=== PATIENT | male | born 1945 | race African-American/Black ===

== ENCOUNTER 2017-04-08 21:39 | Inpatient (IN) | payer MEDICARE ==
[~2017-04-08] VITALS: Ht 177.8 cm; Wt 89.4 kg
[~2017-04-08 21:39] MED LIST: ALBU18HF2 IH; ALBU6.7H IH; AMLO10TA80 PO; ECON15CR11 TP; FLUT1DIS3 INH; LOSA100T14 PO; METF500T4 PO; ROSU40TA PO; TIOT18CA3 IH; TRIA1CAP35 PO
[2017-04-09] MEDS ORDERED: IPRATROPIUM/ALBUTEROL 0.5-3(2.5)MG/3ML NEB HHN ONE (01:45)
[2017-04-09] MEDS ORDERED: PREDNISONE 20MG TABLET PO ONE (01:45)
[2017-04-09 02:27] LABS: BASOPHILS % 0.6 % (0.0-2.0); EOSINOPHILS % 2.8 % (0.0-5.0); HEMATOCRIT. 33.9 % (42.0-52.0); HEMOGLOBIN. 11.6 g/dL (14.0-18.0); LYMPHOCYTES % 14.8 % (20.0-50.0); MEAN CORPUSCULAR HEMOGLOBIN 30.5 pg (28.0-32.0); MEAN CORPUSCULAR VOLUME 88.8 fL (80.0-94.0); MEAN PLATELET VOLUME 9.2 fl (7.4-10.4); MONOCYTES % 9.4 % (2.0-8.0); NEUTROPHILS % 72.4 % (40.0-76.0); PLATELET 154 x1000/uL (130-400); RED BLOOD CELL COUNT 3.82 mill/uL (4.7-6.1); RED CELL DISTRIBUTION WIDTH 14.8 % (11.6-14.6)
[2017-04-09 02:30] LABS: INR 1.1; PARTIAL THROMBOPLASTIN TIME 31.5 sec (23.4-31.0); PROTHROMBIN TIME 11.6 sec (9.4-11.6)
[2017-04-09 02:37] LABS: CARBON DIOXIDE 26 mEq/L (21-32); CHLORIDE 100 mEq/L (98-107); TROPONIN I 0.02 ng/mL (0.00-0.04)
[2017-04-09] MEDS: IPRATROPIUM/ALBUTEROL 0.5-3(2.5)MG/3ML NEB INH SCH ×3 (06:35→20:40)
[2017-04-09 08:33] VITALS: BP 101/55
[2017-04-09] MEDS ORDERED: CLONIDINE 0.1MG TABLET PO PRN (09:30)
[2017-04-09] MEDS ORDERED: ONDANSETRON HCL 4MG/2ML VIAL IV PRN (09:30)
[2017-04-09] MEDS ORDERED: ACETAMINOPHEN 325MG TABLET PO PRN (09:30)
[2017-04-09] MEDS ORDERED: HYDROCODONE/ACETAMINOPHEN 5/325MG TABLET PO PRN (09:30)
[2017-04-09] MEDS ORDERED: SODIUM CHLORIDE 0.45% 1,000 ML IV SCH (09:30)
[2017-04-09] MEDS ORDERED: DEXTROSE 50% WATER 50ML SYRINGE IV PRN (09:45)
[2017-04-09] MEDS: METHYLPREDNISOLONE SOD SUCC 40 MG/ML VIAL IV SCH ×3 (10:51→21:56)
[2017-04-09] MEDS: ENOXAPARIN 40MG/0.4ML SYR SUBCUT SCH (10:52)
[2017-04-09] MEDS: ASPIRIN 81MG EC TABLET PO SCH (10:52)
[2017-04-09] MEDS ORDERED: LEVOFLOXACIN 500MG PREMIX 100 ML IV SCH (11:00)
[2017-04-09] MEDS: BLOOD SUGAR DIAGNOSTIC STRIP TEST SCH ×3 (11:19→21:53)
[2017-04-09] MEDS: INSULIN LISPRO 100 UNITS/ML SUBCUT SCH ×3 (11:37→21:00)
[2017-04-09 12:00] VITALS: BP 99/35
[2017-04-09 16:00] VITALS: BP 102/51
[2017-04-09] MEDS ORDERED: FUROSEMIDE 40MG/4ML VIAL IVP SCH (17:30)
[2017-04-09 20:00] VITALS: BP 104/58
[2017-04-10] VITALS: BP 108/44
[2017-04-10 04:00] VITALS: BP 100/50
[2017-04-10 05:56] LABS: BASOPHILS % 0.2 % (0.0-2.0); EOSINOPHILS % 0.1 % (0.0-5.0); HEMATOCRIT. 37.2 % (42.0-52.0); HEMOGLOBIN. 12.6 g/dL (14.0-18.0); LYMPHOCYTES % 9.8 % (20.0-50.0); MEAN CORPUSCULAR HEMOGLOBIN 30.1 pg (28.0-32.0); MEAN CORPUSCULAR VOLUME 89.1 fL (80.0-94.0); MEAN PLATELET VOLUME 9.2 fl (7.4-10.4); NEUTROPHILS % 82.9 % (40.0-76.0); PLATELET 184 x1000/uL (130-400); RED BLOOD CELL COUNT 4.18 mill/uL (4.7-6.1); RED CELL DISTRIBUTION WIDTH 14.8 % (11.6-14.6)
[2017-04-10] MEDS: METHYLPREDNISOLONE SOD SUCC 40 MG/ML VIAL IV SCH ×2 (06:03→14:40)
[2017-04-10] MEDS: BLOOD SUGAR DIAGNOSTIC STRIP TEST SCH ×3 (06:04→17:14)
[2017-04-10] MEDS: INSULIN LISPRO 100 UNITS/ML SUBCUT SCH ×3 (06:17→17:14)
[2017-04-10 06:21] LABS: CHLORIDE 101 mEq/L (98-107)
[2017-04-10 06:33] LABS: CARBON DIOXIDE 27 mEq/L (21-32); HDL CHOLESTEROL 48 mg/dL (40-59); LDL CHOLESTEROL 29 mg/dL (5-100); T4 FREE 0.95 ng/dL (0.76-1.46)
[2017-04-10 08:00] VITALS: BP 103/47
[2017-04-10] MEDS: IPRATROPIUM/ALBUTEROL 0.5-3(2.5)MG/3ML NEB INH SCH ×4 (08:40→19:37)
[2017-04-10] MEDS: ASPIRIN 81MG EC TABLET PO SCH (08:56)
[2017-04-10] MEDS: ENOXAPARIN 40MG/0.4ML SYR SUBCUT SCH (08:56)
[2017-04-10] MEDS ORDERED: LEVOFLOXACIN 250MG PREMIX 50 ML IV SCH (11:00)
[2017-04-10] MEDS: GUAIFENESIN 200MG/10ML SUGAR FREE UDC PO PRN ×2 (11:14→17:22)
[2017-04-10 12:00] VITALS: BP 110/60
[2017-04-10 19:39] VITALS: BP 108/60
== END 2017-04-10 20:10 | disposition home or self-care (01) | DRG 191 ==
LOC: ER 21:55 → ENRESERV 04-09 07:11 → 5WST 04-09 07:56
PROVIDERS: ADMIT Internal Medicine; ATTEND Internal Medicine
DX: J44.1 Chronic obstructive pulmonary disease with (acute) exacerbation (principal); E44.0 Moderate protein-calorie malnutrition; E11.22 Type 2 diabetes mellitus with diabetic chronic kidney disease; E11.51 Type 2 diabetes mellitus with diabetic peripheral angiopathy without gangrene; M94.0 Chondrocostal junction syndrome [Tietze]; I12.9 Hypertensive chronic kidney disease with stage 1 through stage 4 chronic kidney disease, or unspecified chronic kidney disease; N18.9 Chronic kidney disease, unspecified; Z96.641 Presence of right artificial hip joint; Z96.653 Presence of artificial knee joint, bilateral; R07.89 Other chest pain; I25.10 Atherosclerotic heart disease of native coronary artery without angina pectoris; Z79.899 Other long term (current) drug therapy
CPT/HCPCS: 36415; 71010; 80053; 80061; 82962; 83690; 83880; 84439; 84443; 84484; 85025; 85610; 85730; 87070; 87804; 93005; 94640; 99285; J1650; J1815; J1940; J1956; J2920; J7512; J7620

== ENCOUNTER 2017-05-28 10:40 | Emergency (ER) | payer MEDICARE ==
[~2017-05-28] VITALS: Ht 172.7 cm; Wt 71.0 kg
[2017-05-28] MEDS ORDERED: IBUPROFEN 600MG TABLET PO ONE (14:30)
[2017-05-28] MEDS ORDERED: HYDROCODONE/ACETAMINOPHEN 5/325MG TABLET PO NR (15:45)
[2017-05-28 17:20] VITALS: BP 132/60
== END 2017-05-28 17:45 | disposition home or self-care (01) ==
LOC: ER 10:40
DX: S62.122A Displaced fracture of lunate [semilunar], left wrist, initial encounter for closed fracture (principal); S62.002A Unspecified fracture of navicular [scaphoid] bone of left wrist, initial encounter for closed fracture; S13.4XXA Sprain of ligaments of cervical spine, initial encounter; M43.12 Spondylolisthesis, cervical region; X58.XXXA Exposure to other specified factors, initial encounter; Y93.89 Activity, other specified; Y92.89 Other specified places as the place of occurrence of the external cause; Y99.8 Other external cause status; J44.9 Chronic obstructive pulmonary disease, unspecified; I10 Essential (primary) hypertension; E11.9 Type 2 diabetes mellitus without complications; Z87.891 Personal history of nicotine dependence
CPT/HCPCS: 72040; 73110; 99284

== ENCOUNTER 2018-07-12 10:09 | Emergency (ER) | payer MEDICARE ==
[~2018-07-12] VITALS: Ht 177.8 cm; Wt 80.0 kg
[~2018-07-12 10:09] MED LIST changes: +METF-414 PO; -METF500T4 PO
[2018-07-12 11:00] VITALS: BP 101/54
[2018-07-12 11:17] LABS: BASOPHILS % 0.8 % (0.0-2.0); EOSINOPHILS % 4.1 % (0.0-5.0); HEMATOCRIT. 37.2 % (42.0-52.0); HEMOGLOBIN. 12.1 g/dL (14.0-18.0); MEAN CORPUSCULAR HEMOGLOBIN 29.8 pg (28.0-32.0); MEAN CORPUSCULAR VOLUME 91.5 fL (80.0-94.0); MONOCYTES % 9.1 % (2.0-8.0); PLATELET 188 x1000/uL (130-400); RED BLOOD CELL COUNT 4.07 mill/uL (4.7-6.1); RED CELL DISTRIBUTION WIDTH 14.4 % (11.6-14.6)
[2018-07-12 11:24] LABS: CHLORIDE 110 mEq/L (98-107); PROTHROMBIN TIME 10.3 sec (9.1-11.1)
== END 2018-07-12 12:21 | disposition home or self-care (01) ==
LOC: ER 10:20
DX: K43.9 Ventral hernia without obstruction or gangrene (principal); J44.9 Chronic obstructive pulmonary disease, unspecified; F17.210 Nicotine dependence, cigarettes, uncomplicated; Z96.641 Presence of right artificial hip joint; Z96.659 Presence of unspecified artificial knee joint; Z98.890 Other specified postprocedural states
CPT/HCPCS: 36415; 74176; 99284

== ENCOUNTER 2020-12-19 18:22 | Emergency (ER) | payer MEDICARE ==
[~2020-12-19] VITALS: Ht 177.8 cm; Wt 80.0 kg
[~2020-12-19 18:22] MED LIST changes: -ALBU6.7H IH; +ALBU6.7H15 IH; -ECON15CR11 TP; +ECON15CR4 TP; -LOSA100T14 PO; +LOSA100T32 PO
[2020-12-19] MEDS ORDERED: AMOX-424 MT (19:06)
[2020-12-19] MEDS ORDERED: AMOXICILLIN/POTASSIUM CLAVULANATE 875/125MG TAB PO ONE (19:15)
[2020-12-19] MEDS ORDERED: KETOROLAC 60MG/2ML VIAL IM ONE (19:15)
[2020-12-19 19:22] VITALS: BP 120/78
== END 2020-12-19 19:23 | disposition home or self-care (01) ==
LOC: ER 18:22
DX: J02.9 Acute pharyngitis, unspecified (principal); J45.909 Unspecified asthma, uncomplicated; J44.1 Chronic obstructive pulmonary disease with (acute) exacerbation; I10 Essential (primary) hypertension; Z79.899 Other long term (current) drug therapy; Z98.890 Other specified postprocedural states
CPT/HCPCS: 96372; 99283; J1885

== ENCOUNTER 2022-06-17 17:05 | Inpatient (IN) | payer BC, MEDICAID ==
[~2022-06-17] VITALS: Ht 170.2 cm; Wt 81.2 kg
[~2022-06-17 17:05] MED LIST changes: +AMOX-424 MT
[2022-06-17 18:18] LABS: BASOPHILS % 0.3 % (0.0-2.0); EOSINOPHILS % 2.8 % (0.0-5.0); HEMATOCRIT. 36.1 % (42.0-52.0); HEMOGLOBIN. 11.5 g/dL (14.0-18.0); LYMPHOCYTES % 12.2 % (20.0-50.0); MEAN CORPUSCULAR HEMOGLOBIN 29.2 pg (28.0-32.0); MEAN CORPUSCULAR VOLUME 91.5 fL (80.0-94.0); MEAN PLATELET VOLUME 9.2 fl (7.4-10.4); MONOCYTES % 8.1 % (2.0-8.0); NEUTROPHILS % 76.6 % (40.0-76.0); PLATELET 225 x1000/uL (130-400); RED BLOOD CELL COUNT 3.95 mill/uL (4.7-6.1); RED CELL DISTRIBUTION WIDTH 17.7 % (11.6-14.6)
[2022-06-17 18:26] LABS: CHLORIDE 108 mEq/L (98-107)
[2022-06-17] MEDS ORDERED: ASPIRIN 325MG EC TABLET PO NR (22:30)
[2022-06-17] MEDS ORDERED: SODIUM CHLORIDE 0.9% 1,000 ML IV ONE (22:30)
[2022-06-18] MEDS ORDERED: METOPROLOL TARTRATE 5MG/5ML VIAL IV NR (01:15)
[2022-06-18] MEDS ORDERED: DOCUSATE SODIUM 100MG CAPSULE PO PRN (02:45)
[2022-06-18] MEDS ORDERED: CLONIDINE 0.1MG TABLET PO PRN (02:45)
[2022-06-18] MEDS ORDERED: ONDANSETRON HCL 4MG/2ML INJ IV PRN (02:45)
[2022-06-18] MEDS ORDERED: DILTIAZEM HCL 30MG TABLET PO NR (02:45)
[2022-06-18] MEDS ORDERED: GUAIFENESIN 200MG/10ML SUGAR FREE UDC PO PRN (02:45)
[2022-06-18] MEDS ORDERED: ACETAMINOPHEN 325MG TABLET PO PRN (02:45)
[2022-06-18] MEDS ORDERED: IPRATROPIUM/ALBUTEROL 0.5-3(2.5)MG/3ML NEB HHN PRN (02:45)
[2022-06-18 03:12] LABS: CLARITY URINE CLEAR (CLEAR); COLOR URINE YELLOW (YELLOW); KETONES URINE TRACE (NEGATIVE); LEUKOCYTE ESTERASE URINE 1+ (NEGATIVE); NITRITE URINE NEGATIVE (NEGATIVE); OCCULT BLOOD URINE 2+ (NEGATIVE); PH URINE 5.5 (4.5-8.0); PROTEIN URINE 1+ (NEGATIVE); SPECIFIC GRAVITY URINE 1.012 (1.005-1.030); UROBILINOGEN URINE 0.2 E.U./dL (0.2-1.0)
[2022-06-18 03:26] LABS: *AMPHETAMINES SCREEN URINE NEGATIVE (NEGATIVE); *BARBITURATES SCREEN URINE NEGATIVE (NEGATIVE); *BENZODIAZEPINES SCREEN URINE NEGATIVE (NEGATIVE); *COCAINE SCREEN URINE NEGATIVE (NEGATIVE); CANNABINOID URINE SCREEN NEGATIVE (NEGATIVE); METHADONE URINE SCREEN NEGATIVE (NEGATIVE); OPIATES URINE SCREEN PRESUMTIVE POSITIVE (NEGATIVE); PHENCYCLIDINE URINE SCREEN NEGATIVE (NEGATIVE)
[2022-06-18 06:17] LABS: CREATINE KINASE MB FRACTION 2.6 ng/mL (0.5-3.6)
[2022-06-18 06:20] LABS: FOLIC ACID (FOLATE) SERUM 6.4 ng/mL (>5.38)
[2022-06-18] MEDS ORDERED: PIPERACILLIN/TAZ 3.375G PREMIX 50 ML IV NR (07:15)
[2022-06-18] MEDS ORDERED: VANCOMYCIN 1,500 MG in DEXT 5% WATER 250 ML IV NR (08:00)
[2022-06-18] MEDS ORDERED: ENOXAPARIN 30MG/0.3ML SYR SUBCUT SCH (09:00)
[2022-06-18 09:54] LABS: INR 1.2
[2022-06-18] MEDS ORDERED: PIPERACILLIN/TAZOBACTAM 3.375G in DEXT 5% WATER 50ML IV NR (10:00)
[2022-06-18] MEDS: DEXAMETHASONE 4MG/ML 1ML VIAL IV SCH ×2 (12:25→19:42)
[2022-06-18 15:22] LABS: CREATINE KINASE MB FRACTION 1.8 ng/mL (0.5-3.6)
[2022-06-18] MEDS ORDERED: IPRATROPIUM BROMIDE (0.02%) 0.5MG/2.5ML NEB HHN PRN (16:45)
[2022-06-18 17:00] VITALS: BP 121/57
[2022-06-18 17:36] VITALS: BP 121/57
[2022-06-18] MEDS ORDERED: INFLUENZA VACCINE IM ONE (18:15)
[2022-06-18] MEDS ORDERED: PNEUMOCOCCAL VACCINE IM ONE (18:15)
[2022-06-18 20:00] VITALS: BP 107/52
[2022-06-18] MEDS: FAMOTIDINE 20MG TABLET PO SCH (21:29)
[2022-06-19] VITALS: BP 116/53
[2022-06-19] MEDS: DEXAMETHASONE 4MG/ML 1ML VIAL IV SCH ×4 (01:02→18:57)
[2022-06-19 04:00] VITALS: BP 149/53
[2022-06-19] MEDS ORDERED: LIDOCAINE HCL 1%/EPI 1:200,000 30 ML VIAL ONE (06:44)
[2022-06-19] MEDS ORDERED: GENTAMICIN SULF 40MG/ML 2ML VIAL ONE (06:45)
[2022-06-19] MEDS ORDERED: THROMBIN (BOVINE) 5000 UNITS/VIAL TOP ONE (06:45)
[2022-06-19 08:00] VITALS: BP 125/55
[2022-06-19 10:51] LABS: BASOPHILS % 0.2 % (0.0-2.0); HEMATOCRIT. 37.6 % (42.0-52.0); HEMOGLOBIN. 12.4 g/dL (14.0-18.0); LYMPHOCYTES % 14.7 % (20.0-50.0); MEAN CORPUSCULAR HEMOGLOBIN 29.5 pg (28.0-32.0); MEAN CORPUSCULAR VOLUME 89.5 fL (80.0-94.0); MEAN PLATELET VOLUME 10.1 fl (7.4-10.4); MONOCYTES % 2.5 % (2.0-8.0); NEUTROPHILS % 82.6 % (40.0-76.0); PLATELET 197 x1000/uL (130-400); RED CELL DISTRIBUTION WIDTH 17.2 % (11.6-14.6)
[2022-06-19 11:07] LABS: CHLORIDE 111 mEq/L (98-107)
[2022-06-19 11:19] LABS: PHOSPHORUS 3.7 mg/dL (2.5-4.9)
[2022-06-19 12:00] VITALS: BP 114/70
[2022-06-19 16:00] VITALS: BP 119/60
[2022-06-19] MEDS ORDERED: VANCOMYCIN 500MG PREMIX 100 ML IV SCH (16:00)
[2022-06-19] MEDS ORDERED: IPRATROPIUM BROMIDE (0.02%) 0.5MG/2.5ML NEB HHN SCH (18:15)
[2022-06-19 20:00] VITALS: BP 115/52
[2022-06-19] MEDS: FAMOTIDINE 20MG TABLET PO SCH (21:35)
[2022-06-20] VITALS: BP 125/69
[2022-06-20] MEDS ORDERED: ALBUTEROL (0.083%) 2.5MG/3ML NEB HHN SCH
[2022-06-20] MEDS: DEXAMETHASONE 4MG/ML 1ML VIAL IV SCH ×3 (00:43→11:26)
[2022-06-20] MEDS: ZOLPIDEM TARTRATE 5MG TABLET PO PRN (00:43)
[2022-06-20 04:00] VITALS: BP 122/88
[2022-06-20 08:00] VITALS: BP 134/58
[2022-06-20] MEDS ORDERED: REGADENOSON 0.4 MG/5 ML IV SCH (08:45)
[2022-06-20] MEDS: BUDESONIDE 0.5MG/2ML NEB HHN SCH ×2 (09:19→20:52)
[2022-06-20 12:00] VITALS: BP 152/43
[2022-06-20] MEDS ORDERED: VANCOMYCIN 500MG PREMIX 100 ML IV SCH (15:00)
[2022-06-20 16:00] VITALS: BP 154/61
[2022-06-20 20:00] VITALS: BP 105/49
[2022-06-20] MEDS: FAMOTIDINE 20MG TABLET PO SCH (20:46)
[2022-06-21] VITALS: BP 131/51
[2022-06-21 04:00] VITALS: BP 96/48
[2022-06-21 08:00] VITALS: BP 119/54
[2022-06-21] MEDS ORDERED: REGADENOSON 0.4 MG/5 ML IV ONE (11:04)
[2022-06-21 11:56] VITALS: BP 123/62
[2022-06-21] MEDS: BUDESONIDE 0.5MG/2ML NEB HHN SCH ×2 (12:06→20:14)
[2022-06-21] MEDS: ALBUTEROL (0.083%) 2.5MG/3ML NEB HHN PRN ×2 (12:07→20:16)
[2022-06-21] MEDS: VANCOMYCIN 750MG PREMIX 150 ML IV SCH (13:39)
[2022-06-21 16:00] VITALS: BP 136/52
[2022-06-21 20:00] VITALS: BP 115/40
[2022-06-21] MEDS: FAMOTIDINE 20MG TABLET PO SCH (21:19)
[2022-06-21] MEDS: ZOLPIDEM TARTRATE 5MG TABLET PO PRN (23:11)
[2022-06-22] VITALS: BP 106/51
[2022-06-22 04:00] VITALS: BP 119/42
[2022-06-22 08:00] VITALS: BP 114/54
[2022-06-22] MEDS ORDERED: IODIXANOL 320MG/ML 100 ML BOTTLE IV ONE (08:31)
[2022-06-22] MEDS ORDERED: HEPARIN 1000 UNITS/ML 10ML ONE (08:31)
[2022-06-22] MEDS ORDERED: LIDOCAINE HCL/PF 2% 20MG/ML 5 ML/VIAL ONE (08:31)
[2022-06-22] MEDS ORDERED: FENTANYL CITRATE/PF 50MCG/ML 2ML VIAL ONE (09:02)
[2022-06-22] MEDS ORDERED: MIDAZOLAM HCL 2 MG/2 ML VIAL ONE (09:02)
[2022-06-22] MEDS ORDERED: ATROPINE SULFATE 1MG/10ML SYR ONE (09:24)
[2022-06-22] MEDS: BUDESONIDE 0.5MG/2ML NEB HHN SCH (09:24)
[2022-06-22] MEDS ORDERED: ACETAMINOPHEN 325MG TABLET PO PRN (10:00)
[2022-06-22] MEDS ORDERED: ATROPINE SULFATE 1MG/10ML SYR IV PRN (10:00)
[2022-06-22] MEDS ORDERED: SODIUM CHLORIDE 0.45% 1,000 ML IV ONE (10:45)
[2022-06-22] MEDS ORDERED: NITROGLYCERIN 50MCG/ML 10ML VIAL (CATH LAB) IV ONE (11:08)
[2022-06-22] MEDS ORDERED: NICARDIPINE 100MCG/ML 10ML VIAL (CATH LAB) IV ONE (11:08)
[2022-06-22 13:50] VITALS: BP 103/56
[2022-06-22 16:00] VITALS: BP 118/90
[2022-06-22] MEDS: VANCOMYCIN 750MG PREMIX 150 ML IV SCH (16:05)
[2022-06-22 20:00] VITALS: BP 96/46
[2022-06-22] MEDS: ZOLPIDEM TARTRATE 5MG TABLET PO PRN (20:47)
[2022-06-22] MEDS: FAMOTIDINE 20MG TABLET PO SCH (20:47)
[2022-06-23] VITALS (50 sets, daily range): BP systolic 71–194; BP diastolic 28–171
[2022-06-23] MEDS: DEXAMETHASONE 4MG/ML 1ML VIAL IV SCH ×5 (01:01→23:19)
[2022-06-23 07:07] LABS: BASOPHILS % 0.2 % (0.0-2.0); EOSINOPHILS % 2.4 % (0.0-5.0); HEMATOCRIT. 37.8 % (42.0-52.0); HEMOGLOBIN. 12.1 g/dL (14.0-18.0); LYMPHOCYTES % 19.9 % (20.0-50.0); MEAN CORPUSCULAR HEMOGLOBIN 28.8 pg (28.0-32.0); MEAN CORPUSCULAR VOLUME 89.9 fL (80.0-94.0); MEAN PLATELET VOLUME 10.1 fl (7.4-10.4); MONOCYTES % 3.4 % (2.0-8.0); NEUTROPHILS % 74.1 % (40.0-76.0); PLATELET 222 x1000/uL (130-400); RED BLOOD CELL COUNT 4.21 mill/uL (4.7-6.1); RED CELL DISTRIBUTION WIDTH 16.2 % (11.6-14.6)
[2022-06-23] MEDS ORDERED: ETOMIDATE 2MG/ML 10ML VIAL IV ONE (09:26)
[2022-06-23] MEDS ORDERED: DEXAMETHASONE 4MG/ML 1ML VIAL ONE (09:26)
[2022-06-23] MEDS ORDERED: ONDANSETRON HCL 4MG/2ML INJ ONE (09:26)
[2022-06-23] MEDS ORDERED: GLYCOPYRROLATE 0.2 MG/ML 2ML VIAL ONE ×3 (09:27→11:47)
[2022-06-23] MEDS ORDERED: FENTANYL CITRATE/PF 50MCG/ML 2ML VIAL ONE ×2 (09:27→10:40)
[2022-06-23] MEDS ORDERED: ROCURONIUM BROMIDE 10MG/ML VIAL 5ML IV ONE ×2 (09:27→10:54)
[2022-06-23] MEDS ORDERED: NEOSTIGMINE METHYLSULFATE 1MG/ML 10 ML VIAL ONE (09:27)
[2022-06-23] MEDS ORDERED: PROPOFOL 200MG/20ML VIAL IV ONE (09:27)
[2022-06-23] MEDS ORDERED: MIDAZOLAM HCL 2 MG/2 ML VIAL ONE (09:28)
[2022-06-23] MEDS ORDERED: GENTAMICIN SULF 40MG/ML 2ML VIAL ONE (09:45)
[2022-06-23] MEDS ORDERED: LIDOCAINE HCL/EPINEPHRINE 1%-EPI 1:100,000 20 ML VIAL ONE (09:45)
[2022-06-23] MEDS ORDERED: THROMBIN (BOVINE) 5000 UNITS/VIAL TOP ONE (09:45)
[2022-06-23] MEDS ORDERED: NICARDIPINE 100 MG in SODIUM CHLORIDE 0.9% 60 ML IV PRN (10:00)
[2022-06-23] MEDS ORDERED: NALOXONE HCL 0.4MG/ML VIAL IV PRN (11:00)
[2022-06-23] MEDS ORDERED: LABETALOL HCL 5MG/ML VIAL 20ML IV ONE (11:59)
[2022-06-23] MEDS ORDERED: HYDRALAZINE 20MG/ML VIAL ONE ×2 (11:59→12:06)
[2022-06-23] MEDS: MORPHINE SULFATE 4 MG/ML CPJ (NOT FOR IM USE) IV PRN ×2 (12:43→17:51)
[2022-06-23] MEDS: DEXT 5%/LACTATED RINGERS 1,000 ML IV SCH ×2 (12:45→20:00)
[2022-06-23 13:13] LABS: BG CARBOXYHEMOGLOBIN 0.2 % (0.5-1.5); BG DEOXYHEMOGLOBIN 0.2 % (0.0-5.0); BG FRACTION INSPIRED OXYGEN 100; BG HCO3 ACT 20.4 mmol/L (22.0-26.0); BG METHEMOGLOBIN 0.1 % (0.0-1.5); BG OXYGEN SATURATION 99.8 % (92.0-98.5); BG OXYHEMOGLOBIN 99.5 % (94.0-97.0); BG PCO2 39.4 mmHg (35.0-45.0); BG PH 7.333 (7.350-7.450); BG PO2 526.2 mmHg (75.0-100.0); BG SAMPLE SITE ALINE; BG TOTAL HEMOGLOBIN 14.5 g/dL (12.0-18.0); BG VENT MODE VENT - AC
[2022-06-23] MEDS ORDERED: PROPOFOL 10MG/ML 100ML 100 ML IV PRN (13:15)
[2022-06-23] MEDS ORDERED: MORPHINE SULFATE 4 MG/ML CPJ (NOT FOR IM USE) IV NR (13:30)
[2022-06-23] MEDS ORDERED: CEFAZOLIN SODIUM 1000MG/VIAL IV SCH (14:00)
[2022-06-23] MEDS: VANCOMYCIN 750MG PREMIX 150 ML IV SCH (14:09)
[2022-06-23] MEDS: CEFAZOLIN 1000MG PREMIX 50 ML IV SCH ×2 (14:09→23:19)
[2022-06-23 15:12] LABS: BG BASE EXCESS -3.7 mmol/L (-2.0-2.0); BG CARBOXYHEMOGLOBIN 0.2 % (0.5-1.5); BG DEOXYHEMOGLOBIN 2.4 % (0.0-5.0); BG FRACTION INSPIRED OXYGEN 40; BG HCO3 ACT 21.7 mmol/L (22.0-26.0); BG METHEMOGLOBIN 0.7 % (0.0-1.5); BG OXYGEN SATURATION 97.6 % (92.0-98.5); BG OXYHEMOGLOBIN 96.7 % (94.0-97.0); BG PCO2 40.8 mmHg (35.0-45.0); BG PH 7.344 (7.350-7.450); BG PO2 109.5 mmHg (75.0-100.0); BG SAMPLE SITE ALINE; BG TOTAL HEMOGLOBIN 13.7 g/dL (12.0-18.0); BG VENT MODE VENT - CPAP
[2022-06-23] MEDS: FAMOTIDINE 20MG TABLET PO SCH (21:00)
[2022-06-24] VITALS (42 sets, daily range): BP systolic 99–147; BP diastolic 44–80
[2022-06-24] MEDS: CEFAZOLIN 1000MG PREMIX 50 ML IV SCH ×3 (05:21→23:44)
[2022-06-24] MEDS: DEXAMETHASONE 4MG/ML 1ML VIAL IV SCH ×4 (05:21→23:44)
[2022-06-24] MEDS: DEXT 5%/LACTATED RINGERS 1,000 ML IV SCH ×2 (05:21→17:26)
[2022-06-24] MEDS ORDERED: LIDOCAINE HCL 1% 30ML VIAL (10MG/ML) ONE (07:52)
[2022-06-24] MEDS: MORPHINE SULFATE 4 MG/ML CPJ (NOT FOR IM USE) IV PRN (14:41)
[2022-06-24] MEDS: FAMOTIDINE 20MG TABLET PO SCH (21:48)
[2022-06-25] VITALS: BP 138/57
[2022-06-25] MEDS: DEXT 5%/LACTATED RINGERS 1,000 ML IV SCH ×3 (00:43→22:32)
[2022-06-25] MEDS: MORPHINE SULFATE 4 MG/ML CPJ (NOT FOR IM USE) IV PRN (00:43)
[2022-06-25 01:00] VITALS: BP 138/57
[2022-06-25 02:00] VITALS: BP 117/71
[2022-06-25 04:00] VITALS: BP 148/61
[2022-06-25] MEDS: DEXAMETHASONE 4MG/ML 1ML VIAL IV SCH ×2 (05:53→12:59)
[2022-06-25] MEDS: CEFAZOLIN 1000MG PREMIX 50 ML IV SCH ×2 (05:53→13:39)
[2022-06-25 06:00] VITALS: BP 151/59
[2022-06-25 18:17] LABS: CHLORIDE 106 mEq/L (98-107)
[2022-06-25 20:00] VITALS: BP 139/68
[2022-06-25] MEDS: FAMOTIDINE 20MG TABLET PO SCH (22:40)
[2022-06-26] VITALS (10 sets, daily range): BP systolic 110–152; BP diastolic 60–98
[2022-06-26] MEDS ORDERED: LORAZEPAM 2MG/ML CPJ IV NR (19:15)
[2022-06-26] MEDS: DEXT 5%/LACTATED RINGERS 1,000 ML IV SCH (20:59)
[2022-06-26] MEDS: FAMOTIDINE 20MG TABLET PO SCH (21:00)
[2022-06-26] MEDS ORDERED: LEVETIRACETAM 3,000 MG in SODIUM CHLORIDE 0.9% 100 ML IV NR (21:00)
[2022-06-27] VITALS (13 sets, daily range): BP systolic 120–179; BP diastolic 55–107
[2022-06-27] MEDS: DEXT 5%/LACTATED RINGERS 1,000 ML IV SCH ×2 (04:00→17:15)
[2022-06-27] MEDS: LEVETIRACETAM 1000MG PREMIX 100 ML IV SCH ×2 (08:36→20:24)
[2022-06-27] MEDS: AMLODIPINE 5MG TABLET PO SCH (09:15)
[2022-06-27] MEDS: FAMOTIDINE 20MG TABLET PO SCH ×3 (20:24→20:45)
[2022-06-28] VITALS (7 sets, daily range): BP systolic 127–159; BP diastolic 53–98
[2022-06-28] MEDS: DEXT 5%/LACTATED RINGERS 1,000 ML IV SCH ×2 (04:00→10:00)
[2022-06-28] MEDS: LEVETIRACETAM 1000MG PREMIX 100 ML IV SCH ×2 (08:26→22:01)
[2022-06-28] MEDS: AMLODIPINE 5MG TABLET PO SCH (09:00)
[2022-06-28] MEDS: ACETAMINOPHEN 325MG TABLET PO PRN (18:42)
[2022-06-28] MEDS: FAMOTIDINE 20MG TABLET PO SCH (22:01)
[2022-06-29] MEDS: DEXT 5%/LACTATED RINGERS 1,000 ML IV SCH ×2 (03:23→16:00)
[2022-06-29 04:00] VITALS: BP 148/87
[2022-06-29 08:00] VITALS: BP 145/74
[2022-06-29] MEDS: LEVETIRACETAM 1000MG PREMIX 100 ML IV SCH (10:16)
[2022-06-29] MEDS: AMLODIPINE 5MG TABLET PO SCH (10:20)
[2022-06-29 12:00] VITALS: BP 140/70
[2022-06-29 16:00] VITALS: BP 142/72
[2022-06-29 20:00] VITALS: BP 144/76
[2022-06-29] MEDS: FAMOTIDINE 20MG TABLET PO SCH (21:40)
[2022-06-29] MEDS: LEVETIRACETAM 1,500 MG in SODIUM CHLORIDE 0.9% 100 ML IV SCH (21:40)
[2022-06-29] MEDS: ACETAMINOPHEN 325MG TABLET PO PRN (21:49)
[2022-06-29 22:34] VITALS: BP 159/88
[2022-06-30] VITALS (8 sets, daily range): BP systolic 115–149; BP diastolic 63–78
[2022-06-30] MEDS: DEXT 5%/LACTATED RINGERS 1,000 ML IV SCH ×2 (06:58→12:00)
[2022-06-30] MEDS ORDERED: LORAZEPAM 2MG/ML CPJ IV NR (10:00)
[2022-06-30] MEDS: AMLODIPINE 5MG TABLET PO SCH (10:09)
[2022-06-30] MEDS: LEVETIRACETAM 1,500 MG in SODIUM CHLORIDE 0.9% 100 ML IV SCH ×2 (10:09→21:53)
[2022-06-30] MEDS ORDERED: VALPROATE SODIUM 1,000 MG in SODIUM CHLORIDE 0.9% 100 ML IV SCH (11:00)
[2022-06-30 13:00] LABS: HEMATOCRIT 32.7 % (42.0-52.0); HEMOGLOBIN 10.4 g/dL (14.0-18.0); MEAN CORPUSCULAR HEMOGLOBIN 28.9 pg (28.0-32.0); MEAN CORPUSCULAR VOLUME 91.1 fL (80.0-94.0); PLATELET 92 x1000/uL (130-400); RED BLOOD CELL COUNT 3.59 mill/uL (4.7-6.1); RED CELL DISTRIBUTION WIDTH 15.9 % (11.6-14.6)
[2022-06-30 14:27] LABS: CHLORIDE 103 mEq/L (98-107)
[2022-06-30] MEDS ORDERED: IOHEXOL-350 100 ML BOTTLE ONE (15:46)
[2022-06-30] MEDS: FAMOTIDINE 20MG TABLET PO SCH (21:53)
[2022-06-30] MEDS: VALPROATE SODIUM 500 MG in SODIUM CHLORIDE 0.9% 100 ML IV SCH (23:16)
[2022-07-01] VITALS (7 sets, daily range): BP systolic 130–148; BP diastolic 47–82
[2022-07-01] MEDS: DEXT 5%/LACTATED RINGERS 1,000 ML IV SCH ×3 (06:30→17:13)
[2022-07-01] MEDS: AMLODIPINE 5MG TABLET PO SCH (07:57)
[2022-07-01] MEDS: VALPROATE SODIUM 500 MG in SODIUM CHLORIDE 0.9% 100 ML IV SCH ×2 (09:40→22:44)
[2022-07-01] MEDS: LEVETIRACETAM 1,500 MG in SODIUM CHLORIDE 0.9% 100 ML IV SCH ×2 (09:40→21:04)
[2022-07-01] MEDS ORDERED: ENOXAPARIN 80MG/0.8ML SYR SUBCUT SCH (10:00)
[2022-07-01] MEDS: IPRATROPIUM/ALBUTEROL 0.5-3(2.5)MG/3ML NEB HHN SCH ×2 (14:07→20:55)
[2022-07-01] MEDS ORDERED: GUAIFENESIN 600MG ER TABLET PO SCH (21:00)
[2022-07-01] MEDS: BLOOD SUGAR DIAGNOSTIC STRIP TEST SCH (22:00)
[2022-07-01] MEDS: INSULIN LISPRO 100 UNITS/ML SUBCUT SCH (22:13)
[2022-07-01] MEDS: GUAIFENESIN 200MG/10ML SUGAR FREE UDC PO SCH (22:13)
[2022-07-01] MEDS: FAMOTIDINE 20MG TABLET PO SCH (22:14)
[2022-07-02] VITALS (7 sets, daily range): BP systolic 130–145; BP diastolic 67–76
[2022-07-02] MEDS: IPRATROPIUM/ALBUTEROL 0.5-3(2.5)MG/3ML NEB HHN SCH ×4 (01:18→20:48)
[2022-07-02] MEDS: GUAIFENESIN 200MG/10ML SUGAR FREE UDC PO SCH ×3 (06:23→21:54)
[2022-07-02] MEDS: BLOOD SUGAR DIAGNOSTIC STRIP TEST SCH ×4 (06:31→21:55)
[2022-07-02] MEDS: DEXT 5%/LACTATED RINGERS 1,000 ML IV SCH ×2 (06:31→14:00)
[2022-07-02] MEDS: INSULIN LISPRO 100 UNITS/ML SUBCUT SCH ×4 (07:20→21:00)
[2022-07-02] MEDS: LEVETIRACETAM 1,500 MG in SODIUM CHLORIDE 0.9% 100 ML IV SCH ×2 (10:04→21:55)
[2022-07-02] MEDS: AMLODIPINE 5MG TABLET PO SCH (10:04)
[2022-07-02] MEDS: VALPROATE SODIUM 500 MG in SODIUM CHLORIDE 0.9% 100 ML IV SCH ×2 (10:06→21:55)
[2022-07-02] MEDS: THIAMINE HCL 500 MG in SODIUM CHLORIDE 0.9% 95 ML IV SCH (15:43)
[2022-07-02] MEDS: FAMOTIDINE 20MG TABLET PO SCH (21:54)
[2022-07-03] VITALS (7 sets, daily range): BP systolic 108–152; BP diastolic 53–90
[2022-07-03] MEDS: IPRATROPIUM/ALBUTEROL 0.5-3(2.5)MG/3ML NEB HHN SCH ×4 (01:05→21:06)
[2022-07-03] MEDS: DEXT 5%/LACTATED RINGERS 1,000 ML IV SCH (01:38)
[2022-07-03] MEDS: MENTHOL/LANOLIN/CALAMINE/ZN OX OINT 71GM TOP SCH ×5 (01:40→23:54)
[2022-07-03] MEDS: GUAIFENESIN 200MG/10ML SUGAR FREE UDC PO SCH ×3 (06:36→21:49)
[2022-07-03] MEDS: BLOOD SUGAR DIAGNOSTIC STRIP TEST SCH ×4 (06:50→21:49)
[2022-07-03 06:58] LABS: CHLORIDE 102 mEq/L (98-107)
[2022-07-03 06:59] LABS: BASOPHILS % 0.5 % (0.0-2.0); EOSINOPHILS % 2.2 % (0.0-5.0); HEMATOCRIT. 29.6 % (42.0-52.0); HEMOGLOBIN. 9.8 g/dL (14.0-18.0); LYMPHOCYTES % 18.8 % (20.0-50.0); MEAN CORPUSCULAR HEMOGLOBIN 29.7 pg (28.0-32.0); MEAN CORPUSCULAR VOLUME 89.4 fL (80.0-94.0); MEAN PLATELET VOLUME 8.4 fl (7.4-10.4); MONOCYTES % 7.5 % (2.0-8.0); PLATELET 201 x1000/uL (130-400); RED BLOOD CELL COUNT 3.31 mill/uL (4.7-6.1); RED CELL DISTRIBUTION WIDTH 15.9 % (11.6-14.6)
[2022-07-03] MEDS: INSULIN LISPRO 100 UNITS/ML SUBCUT SCH ×4 (07:20→21:00)
[2022-07-03] MEDS ORDERED: POTASSIUM CHLORIDE 20MEQ TABLET SR PO NR (07:45)
[2022-07-03] MEDS ORDERED: KCL 20MEQ/100ML PREMIX 100 ML IV ONE (07:45)
[2022-07-03] MEDS: KCL 20MEQ/100ML PREMIX 100 ML IV SCH ×2 (08:13→11:33)
[2022-07-03] MEDS: AMLODIPINE 5MG TABLET PO SCH (09:27)
[2022-07-03] MEDS: LEVETIRACETAM 1,500 MG in SODIUM CHLORIDE 0.9% 100 ML IV SCH ×2 (09:41→21:49)
[2022-07-03] MEDS: DOCUSATE SODIUM SUGAR FREE 100MG/10ML UDC NG SCH (09:41)
[2022-07-03] MEDS: VALPROATE SODIUM 500 MG in SODIUM CHLORIDE 0.9% 100 ML IV SCH (10:19)
[2022-07-03] MEDS: METOCLOPRAMIDE HCL 10MG/2ML VIAL IV SCH ×3 (12:33→23:54)
[2022-07-03] MEDS: THIAMINE HCL 500 MG in SODIUM CHLORIDE 0.9% 95 ML IV SCH (12:34)
[2022-07-03] MEDS ORDERED: LORAZEPAM 2MG/ML CPJ IM PRN (14:15)
[2022-07-03] MEDS ORDERED: BISACODYL 10MG SUPP PR NR (15:00)
[2022-07-03] MEDS: LORAZEPAM 2MG/ML CPJ IV PRN (15:16)
[2022-07-03] MEDS: FAMOTIDINE 20MG TABLET PO SCH (21:49)
[2022-07-03] MEDS: VALPROATE SODIUM 750 MG in SODIUM CHLORIDE 0.9% 100 ML IV SCH (21:49)
[2022-07-03] MEDS: SENNOSIDES 8.6MG TABLET PO SCH (21:49)
[2022-07-04] VITALS: BP 119/68
[2022-07-04] MEDS: IPRATROPIUM/ALBUTEROL 0.5-3(2.5)MG/3ML NEB HHN SCH ×4 (01:07→21:47)
[2022-07-04 04:00] VITALS: BP 139/70
[2022-07-04] MEDS: METOCLOPRAMIDE HCL 10MG/2ML VIAL IV SCH ×4 (06:38→23:42)
[2022-07-04 06:39] LABS: BASOPHILS % 0.5 % (0.0-2.0); EOSINOPHILS % 2.2 % (0.0-5.0); HEMATOCRIT. 29.2 % (42.0-52.0); HEMOGLOBIN. 9.9 g/dL (14.0-18.0); LYMPHOCYTES % 14.8 % (20.0-50.0); MEAN CORPUSCULAR HEMOGLOBIN 30.2 pg (28.0-32.0); MEAN CORPUSCULAR VOLUME 89.1 fL (80.0-94.0); MEAN PLATELET VOLUME 8.6 fl (7.4-10.4); MONOCYTES % 7.3 % (2.0-8.0); NEUTROPHILS % 75.2 % (40.0-76.0); PLATELET 200 x1000/uL (130-400); RED BLOOD CELL COUNT 3.28 mill/uL (4.7-6.1); RED CELL DISTRIBUTION WIDTH 15.9 % (11.6-14.6)
[2022-07-04] MEDS: GUAIFENESIN 200MG/10ML SUGAR FREE UDC PO SCH ×3 (06:39→21:08)
[2022-07-04] MEDS: INSULIN LISPRO 100 UNITS/ML SUBCUT SCH ×4 (06:39→21:00)
[2022-07-04] MEDS: MENTHOL/LANOLIN/CALAMINE/ZN OX OINT 71GM TOP SCH ×4 (06:39→23:42)
[2022-07-04] MEDS: BLOOD SUGAR DIAGNOSTIC STRIP TEST SCH ×4 (06:39→21:00)
[2022-07-04 07:03] LABS: CHLORIDE 105 mEq/L (98-107)
[2022-07-04 08:00] VITALS: BP 145/83
[2022-07-04] MEDS: LEVETIRACETAM 1,500 MG in SODIUM CHLORIDE 0.9% 100 ML IV SCH ×2 (08:16→21:09)
[2022-07-04] MEDS: DOCUSATE SODIUM SUGAR FREE 100MG/10ML UDC NG SCH (08:16)
[2022-07-04] MEDS: VALPROATE SODIUM 750 MG in SODIUM CHLORIDE 0.9% 100 ML IV SCH (08:17)
[2022-07-04] MEDS: AMLODIPINE 5MG TABLET PO SCH (08:24)
[2022-07-04 12:00] VITALS: BP 116/102
[2022-07-04] MEDS ORDERED: SORBITOL 70% SOLN 30ML PO SCH (12:00)
[2022-07-04] MEDS: THIAMINE HCL 500 MG in SODIUM CHLORIDE 0.9% 95 ML IV SCH (12:29)
[2022-07-04 16:00] VITALS: BP 132/70
[2022-07-04 20:20] VITALS: BP 154/79
[2022-07-04] MEDS: SENNOSIDES 8.6MG TABLET PO SCH (21:00)
[2022-07-04] MEDS: FAMOTIDINE 20MG TABLET PO SCH (21:08)
[2022-07-04] MEDS: VALPROATE SODIUM 1,000 MG in SODIUM CHLORIDE 0.9% 100 ML IV SCH (21:08)
[2022-07-04 22:08] LABS: BG BASE EXCESS 5.6 mmol/L (-2.0-2.0); BG CARBOXYHEMOGLOBIN 0.3 % (0.5-1.5); BG DEOXYHEMOGLOBIN 1.1 % (0.0-5.0); BG FRACTION INSPIRED OXYGEN 32; BG METHEMOGLOBIN 0.4 % (0.0-1.5); BG OXYGEN SATURATION 98.9 % (92.0-98.5); BG OXYHEMOGLOBIN 98.2 % (94.0-97.0); BG PCO2 37.6 mmHg (35.0-45.0); BG PH 7.505 (7.350-7.450); BG PO2 193.6 mmHg (75.0-100.0); BG SAMPLE SITE RIGHT RADIAL; BG TOTAL HEMOGLOBIN 10.6 g/dL (12.0-18.0); BG VENT MODE NASAL CANNULA
[2022-07-04] MEDS: ZONISAMIDE 100MG/10ML ORAL SYR NG SCH (22:19)
[2022-07-04] MEDS: DEXT 5%/0.9% NACL 1,000 ML IV SCH (23:33)
[2022-07-05] VITALS (7 sets, daily range): BP systolic 117–159; BP diastolic 65–92
[2022-07-05 00:17] LABS: CREATINE KINASE 50 IU/L (39-308)
[2022-07-05] MEDS: IPRATROPIUM/ALBUTEROL 0.5-3(2.5)MG/3ML NEB HHN SCH ×4 (02:16→21:12)
[2022-07-05 05:55] LABS: CHLORIDE 105 mEq/L (98-107); INR 1.1; PROTHROMBIN TIME 11.5 sec (9.6-11.0)
[2022-07-05] MEDS: GUAIFENESIN 200MG/10ML SUGAR FREE UDC PO SCH ×3 (06:26→21:17)
[2022-07-05] MEDS: METOCLOPRAMIDE HCL 10MG/2ML VIAL IV SCH ×4 (06:27→23:32)
[2022-07-05] MEDS: BLOOD SUGAR DIAGNOSTIC STRIP TEST SCH ×4 (06:27→20:54)
[2022-07-05] MEDS: MENTHOL/LANOLIN/CALAMINE/ZN OX OINT 71GM TOP SCH ×4 (06:27→23:33)
[2022-07-05 06:46] LABS: BASOPHILS % 0.6 % (0.0-2.0); EOSINOPHILS % 2.2 % (0.0-5.0); HEMATOCRIT. 30.3 % (42.0-52.0); HEMOGLOBIN. 10.1 g/dL (14.0-18.0); LYMPHOCYTES % 17.3 % (20.0-50.0); MEAN CORPUSCULAR HEMOGLOBIN 30.4 pg (28.0-32.0); MEAN CORPUSCULAR VOLUME 91.2 fL (80.0-94.0); MEAN PLATELET VOLUME 8.7 fl (7.4-10.4); MONOCYTES % 6.7 % (2.0-8.0); NEUTROPHILS % 73.2 % (40.0-76.0); PLATELET 183 x1000/uL (130-400); RED BLOOD CELL COUNT 3.33 mill/uL (4.7-6.1); RED CELL DISTRIBUTION WIDTH 16.2 % (11.6-14.6)
[2022-07-05] MEDS: INSULIN LISPRO 100 UNITS/ML SUBCUT SCH ×4 (07:00→20:54)
[2022-07-05] MEDS: LEVETIRACETAM 1,500 MG in SODIUM CHLORIDE 0.9% 100 ML IV SCH ×2 (08:25→21:05)
[2022-07-05] MEDS: VALPROATE SODIUM 1,000 MG in SODIUM CHLORIDE 0.9% 100 ML IV SCH ×2 (08:25→21:05)
[2022-07-05] MEDS ORDERED: KCL 20MEQ/100ML PREMIX 100 ML IV NR (08:30)
[2022-07-05] MEDS: DOCUSATE SODIUM SUGAR FREE 100MG/10ML UDC NG SCH (08:37)
[2022-07-05] MEDS: ZONISAMIDE 100MG/10ML ORAL SYR NG SCH ×2 (08:38→16:50)
[2022-07-05] MEDS: AMLODIPINE 5MG TABLET PO SCH (08:38)
[2022-07-05] MEDS: DEXT 5%/0.9% NACL 1,000 ML IV SCH ×2 (10:26→20:48)
[2022-07-05] MEDS ORDERED: CEFAZOLIN 1000MG PREMIX 50 ML IV NR (10:30)
[2022-07-05] MEDS: DEXTROSE 50% WATER 50ML SYRINGE IV PRN ×2 (11:05→16:38)
[2022-07-05] MEDS: THIAMINE HCL 500 MG in SODIUM CHLORIDE 0.9% 95 ML IV SCH (11:07)
[2022-07-05] MEDS ORDERED: ONDANSETRON HCL 4MG/2ML INJ ONE (13:50)
[2022-07-05] MEDS ORDERED: DEXAMETHASONE 4MG/ML 1ML VIAL ONE (13:50)
[2022-07-05] MEDS ORDERED: PROPOFOL 200MG/20ML VIAL IV ONE (13:51)
[2022-07-05] MEDS: SENNOSIDES 8.6MG TABLET PO SCH (21:06)
[2022-07-05] MEDS: FAMOTIDINE 20MG TABLET PO SCH (21:06)
[2022-07-06] MEDS: IPRATROPIUM/ALBUTEROL 0.5-3(2.5)MG/3ML NEB HHN SCH ×2 (01:12→08:23)
[2022-07-06 04:00] VITALS: BP 113/51
[2022-07-06] MEDS: GUAIFENESIN 200MG/10ML SUGAR FREE UDC PO SCH ×2 (06:12→15:37)
[2022-07-06] MEDS: MENTHOL/LANOLIN/CALAMINE/ZN OX OINT 71GM TOP SCH ×3 (06:12→17:17)
[2022-07-06] MEDS: METOCLOPRAMIDE HCL 10MG/2ML VIAL IV SCH ×3 (06:12→17:14)
[2022-07-06] MEDS: DEXT 5%/0.9% NACL 1,000 ML IV SCH ×2 (06:14→16:00)
[2022-07-06] MEDS: BLOOD SUGAR DIAGNOSTIC STRIP TEST SCH ×3 (06:45→16:50)
[2022-07-06] MEDS: INSULIN LISPRO 100 UNITS/ML SUBCUT SCH ×3 (06:45→17:17)
[2022-07-06 07:23] LABS: CHLORIDE 109 mEq/L (98-107)
[2022-07-06 07:34] LABS: BASOPHILS % 0.3 % (0.0-2.0); EOSINOPHILS % 0.1 % (0.0-5.0); HEMATOCRIT. 29.1 % (42.0-52.0); HEMOGLOBIN. 9.6 g/dL (14.0-18.0); LYMPHOCYTES % 12.4 % (20.0-50.0); MEAN CORPUSCULAR HEMOGLOBIN 29.7 pg (28.0-32.0); MEAN CORPUSCULAR VOLUME 90.3 fL (80.0-94.0); MEAN PLATELET VOLUME 8.6 fl (7.4-10.4); MONOCYTES % 3.6 % (2.0-8.0); NEUTROPHILS % 83.6 % (40.0-76.0); PLATELET 152 x1000/uL (130-400); RED BLOOD CELL COUNT 3.22 mill/uL (4.7-6.1); RED CELL DISTRIBUTION WIDTH 16.3 % (11.6-14.6)
[2022-07-06 08:18] VITALS: BP 132/71
[2022-07-06] MEDS: LEVETIRACETAM 1,500 MG in SODIUM CHLORIDE 0.9% 100 ML IV SCH (08:36)
[2022-07-06] MEDS: DOCUSATE SODIUM SUGAR FREE 100MG/10ML UDC NG SCH (08:37)
[2022-07-06] MEDS: ZONISAMIDE 100MG/10ML ORAL SYR NG SCH ×2 (08:37→17:14)
[2022-07-06] MEDS: AMLODIPINE 5MG TABLET PO SCH (08:37)
[2022-07-06] MEDS: VALPROATE SODIUM 1,000 MG in SODIUM CHLORIDE 0.9% 100 ML IV SCH (09:27)
[2022-07-06 12:15] VITALS: BP 128/68
[2022-07-06 14:25] VITALS: BP 128/68
[2022-07-06 16:09] VITALS: BP 152/75
[2022-07-06] MEDS: LORAZEPAM 2MG/ML CPJ IV PRN (17:24)
[2022-07-06] MEDS ORDERED: DOCUSATE SODIUM SUGAR FREE 100MG/10ML UDC GT PRN (17:30)
[2022-07-06] MEDS ORDERED: LEVETIRACETAM 500MG/5ML CUP GT SCH (21:00)
== END 2022-07-06 18:04 | DRG 853 ==
LOC: ER 17:05 → MICUSO 23:40 → 7EST 06-18 16:35 → MICUSO 06-23 12:25 → 5EST 06-24 18:57 → 3WST 06-29 18:34
PROVIDERS: ADMIT Internal Medicine; ATTEND Internal Medicine
PROC: 4A023N7 Measurement of Cardiac Sampling and Pressure, Left Heart, Percutaneous Approach (ICD-10-PCS; 2022-06-22)
PROC: B2111ZZ Fluoroscopy of Multiple Coronary Arteries using Low Osmolar Contrast (ICD-10-PCS; 2022-06-22)
PROC: 0RG2071 Fusion of 2 or more Cervical Vertebral Joints with Autologous Tissue Substitute, Posterior Approach, Posterior Column, Open Approach (ICD-10-PCS; principal; 2022-06-23)
PROC: 00NW0ZZ Release Cervical Spinal Cord, Open Approach (ICD-10-PCS; 2022-06-23)
PROC: 4A11X4G Monitoring of Peripheral Nervous Electrical Activity, Intraoperative, External Approach (ICD-10-PCS; 2022-06-23)
PROC: 5A1935Z Respiratory Ventilation, Less than 24 Consecutive Hours (ICD-10-PCS; 2022-06-23)
PROC: 0BH17EZ Insertion of Endotracheal Airway into Trachea, Via Natural or Artificial Opening (ICD-10-PCS; 2022-06-23)
PROC: 05HY33Z Insertion of Infusion Device into Upper Vein, Percutaneous Approach (ICD-10-PCS; 2022-06-24)
PROC: B54NZZA Ultrasonography of Left Upper Extremity Veins, Guidance (ICD-10-PCS; 2022-06-24)
PROC: 4A00X4Z Measurement of Central Nervous Electrical Activity, External Approach (ICD-10-PCS; 2022-07-01)
PROC: 0DB78ZX Excision of Stomach, Pylorus, Via Natural or Artificial Opening Endoscopic, Diagnostic (ICD-10-PCS; 2022-07-05)
PROC: 0DH63UZ Insertion of Feeding Device into Stomach, Percutaneous Approach (ICD-10-PCS; 2022-07-05)
DX: A41.9 Sepsis, unspecified organism (principal); G82.50 Quadriplegia, unspecified; N17.0 Acute kidney failure with tubular necrosis; I21.A1 Myocardial infarction type 2; G93.41 Metabolic encephalopathy; J96.90 Respiratory failure, unspecified, unspecified whether with hypoxia or hypercapnia; M50.023 Cervical disc disorder at C6-C7 level with myelopathy; M62.82 Rhabdomyolysis; E44.0 Moderate protein-calorie malnutrition; I82.622 Acute embolism and thrombosis of deep veins of left upper extremity; N39.0 Urinary tract infection, site not specified; M48.02 Spinal stenosis, cervical region; M50.123 Cervical disc disorder at C6-C7 level with radiculopathy; I48.91 Unspecified atrial fibrillation; N18.9 Chronic kidney disease, unspecified; I12.9 Hypertensive chronic kidney disease with stage 1 through stage 4 chronic kidney disease, or unspecified chronic kidney disease; E11.22 Type 2 diabetes mellitus with diabetic chronic kidney disease; I25.10 Atherosclerotic heart disease of native coronary artery without angina pectoris; J44.9 Chronic obstructive pulmonary disease, unspecified; I16.0 Hypertensive urgency; D69.6 Thrombocytopenia, unspecified; Z20.822 Contact with and (suspected) exposure to COVID-19; E78.5 Hyperlipidemia, unspecified; E87.6 Hypokalemia; R13.10 Dysphagia, unspecified; D63.1 Anemia in chronic kidney disease; I49.3 Ventricular premature depolarization; K29.70 Gastritis, unspecified, without bleeding; K29.80 Duodenitis without bleeding; G40.901 Epilepsy, unspecified, not intractable, with status epilepticus; F17.210 Nicotine dependence, cigarettes, uncomplicated; Z96.641 Presence of right artificial hip joint; Z96.659 Presence of unspecified artificial knee joint; Z86.73 Personal history of transient ischemic attack (TIA), and cerebral infarction without residual deficits; I25.2 Old myocardial infarction; Z93.1 Gastrostomy status; Z79.899 Other long term (current) drug therapy; Z68.28 Body mass index [BMI] 28.0-28.9, adult
CPT/HCPCS: 36415; 36573; 36600; 70496; 70498; 70551; 71045; 72040; 72141; 72146; 72148; 74018; 76000; 78452; 80048; 80053; 80061; 80202; 80305; 81003; 82375; 82550; 82553; 82565; 82607; 82746; 82805; 82962; 83036; 83540; 83550; 83605; 83735; 83880; 84100; 84145; 84478; 84484; 85025; 85027; 86850; 86900; 87426; 88305; 88311; 90686; 93005; 93017; 93306; 93458; 93971; 94002; 94640; 94667; 95816; 97110; 97116; 97162; 97164; 97166; 97530; 99285; A6261; A9500; C1725; C1769; C1887; C1893; J0360; J0461; J0690; J1100; J1580; J1644; J1953; J2060; J2250; J2270; J2405; J2543; J2704; J2710; J2765; J2785; J3010; J3370; J3411; J3480; J3490; J7042; J7050; J7060; J7121; J7626; L0172; Q9967; A4315; C1713